=== PATIENT | male | born 1980 | race Caucasian/White ===

== ENCOUNTER 2021-04-04 07:51 | Emergency (ER) | payer MEDICAID, SELFPAY ==
[2021-04-04 08:31] VITALS: BP 126/76; PULSE 97; RESP 18; TEMP 36.4; O2SAT 98; BMI 36.2
--- NOTE | 2021-04-04 09:12 | ED.EYEPROB ---
HPI - Eye Problem General Chief complaint: Eye Problems Stated complaint: swollen rt eye x 1 week Source: patient Mode of arrival: ambulatory Limitations: no limitations History of Present Illness HPI Narrative: Patient presents to ED for right upper eyelid swelling for 1 week. Patient states he noticed a small bump inside his right upper eyelid. Patient denies any recent trauma to the eye, but by, change/loss of vision, headache, fever, chills, dizziness. Patient denies wearing contacts. Patient denies any foreign body to the eye Related Data Previous Rx's Medication Instructions Recorded doxycycline hyclate 100 mg PO BID #28 cap 04/04/21 naproxen 500 mg PO BID PRN #20 tab 04/04/21 Allergies Allergy/AdvReac Type Severity Reaction Status Date / Time No Known Allergies Allergy Unverified 07/06/20 16:24 [No Known Allergies*] Review of Systems Review of Systems: Yes all other systems are reviewed and are negative Constitutional: Constitutional: Reports as per HPI and Reports no additional constitutional complaints Eyes: Eyes: Reports as per HPI and Reports no additional eye complaints Comments: Right upper eyelid swelling with pain ENT: Reports system reviewed and no additional complaints, except as documented and Reports as per HPI Cardiovascular: Cardiovascular: Reports as per HPI and Reports no additional cardiovascular complaints Respiratory: Respiratory: Reports as per HPI and Reports no additional respiratory complaints Gastrointestinal: Gastrointestinal: Reports as per HPI and Reports no additional gastrointestinal complaints Musculoskeletal: Musculoskeletal: Reports no additional musculoskeletal complaints and Reports as per HPI Neurologic: Reports system reviewed and no additional complaints, except as documented and Reports as per HPI Psychiatric: Psychiatric: Reports no additional psychiatric complaints and Reports as per HPI [facility] Past Medical History Medical History (Updated 04/04/21 @ 09:21 by NAHID Umana) Diabetes mellitus, insulin dependent (IDDM), controlled Hyperlipidemia Hypertension Social History Social History Advance Directives: No Advance Directives Information Provided: No Physical Exam Vital Signs: Vital Signs: Last Vital Signs Temp 97.5 F 04/04/21 08:31 Pulse 97 04/04/21 08:31 Resp 18 04/04/21 08:31 BP 126/76 04/04/21 08:31 Pulse Ox 98 04/04/21 08:31 Body Mass Index 36.2 Const: General: cooperative, healthy appearing, comfortable, no acute distress, well developed, alert, awake and Physically active Orientation/consciousness: patient oriented x3 HENMT: Head: Yes normal to inspection, Yes No palpable skull fracture present, Yes normocephalic, Yes atraumatic and No abrasion Eyes: Other: Right eye: positive for right upper eyelid swelling with inner stye. Visual acuity is 20/40. Negative for foreign body or obvious corneal abrasion. Negative for any conjutiva redness or discharge. LEft eye: normal. Visual acituiy 20/30 General: appearance normal, both eyes and all related structures Neck: Neck: Yes normal visual inspection, Yes full ROM, Yes no lymphadenopathy, Yes no meningeal signs, Yes trachea midline, Yes supple and No tender Chest: Chest palpation & inspection: normal inspection of the chest and normal palpation of entire chest wall Resp: Effort & Inspection: normal respiratory effort and able to speak in complete sentences Auscultation: clear to auscultation bilaterally Cardio: Jugular venous distension: no JVD Heart sounds: S1 normal heart sound present and S2 normal heart sound present GI: Inspection: Yes normal to inspection and No abdominal wall ecchymosis Palpation (GI): Soft to palpation, not firm, nontender, no guarding and not rigid : General: Yes CVA tenderness and Yes no CVA tenderness Back/Spine/Pelvis: Back: no CVA tenderness and CVA tenderness Skin: General skin exam: no rashes or lesions noted and elasticity normal Neuro: General: patient oriented x3, no meningeal signs and CN's II-XI intact bilaterally Cranial nerves: Yes CN's II-XII intact bilaterally Extrem: General: Yes normal to inspection and Yes full ROM Psych: Appearance: grossly normal, well kempt and not disheveled Course Course Course Narrative: Stye Reevaluation(s) Reevaluation #1: History physical exam indicates stye. Patient educated on warm compress will be given oral antibiotics. Patient educated follow-up with eye doctor Time: 09:19 MDM - Eye Problem MDM Narrative Medical decision making narrative: Stye Discharge Plan Discharge Clinical Impression: Stye Patient Disposition: Home, Self-Care Instructions: [facility] (ED) Additional Instructions: Return to the ED for worsening eye pain, loss or change in vision, worsening swelling, headache, dizziness, fever, chills, green discharge, or any other concerning symptoms. Recommend warm compress on eyelid 4 times a day for 15 minutes. Prescriptions: New naproxen 500 mg tablet 500 mg PO BID PRN (Reason: pain) Qty: 20 RF: 0 doxycycline hyclate 100 mg capsule 100 mg PO BID Qty: 28 RF: 0 Referrals: Vinod Martinez [Physician] - 2 days (Chronic right stye) Stand Alone Forms: Work/School Release Interventions: ED Discharge Assessment Last Done: 04/04/21 09:40 Discharge Date/Time: 04/04/21 09:41 Print Language: Uz[place]
== END 2021-04-04 09:41 | disposition home or self-care (01) ==
PROVIDERS: Emergency Provider Emergency Medicine
DX: H00.011 Hordeolum externum right upper eyelid (principal)
CPT/HCPCS: 99283